=== PATIENT | male | born 1990 | race African-American/Black ===

== ENCOUNTER 2017-04-11 11:59 | Emergency (ER) | payer SELFPAY ==
[~2017-04-11] VITALS: Ht 172.7 cm; Wt 61.0 kg
[2017-04-11 14:39] VITALS: BP 125/66
== END 2017-04-11 14:40 | disposition home or self-care (01) ==
LOC: ER 14:07
DX: Z04.3 Encounter for examination and observation following other accident (principal); M25.562 Pain in left knee; M79.89 Other specified soft tissue disorders; F17.210 Nicotine dependence, cigarettes, uncomplicated; F12.10 Cannabis abuse, uncomplicated
CPT/HCPCS: 99283